=== PATIENT | female | born 1945 | race Caucasian/White ===

== ENCOUNTER 2017-05-20 17:37 | Emergency (ER) | payer SELFPAY ==
[~2017-05-20] VITALS: Ht 157.5 cm; Wt 54.9 kg
[2017-05-20 17:44] VITALS: Ht 157.5 cm; Wt 54.9 kg
[2017-05-20 19:11] LABS: CARBON DIOXIDE 28.5 mmol/L (21-32); CREATININE SERUM 1.2 mg/dL (0.6-1.0); POTASSIUM SERUM 3.6 mmol/L (3.5-5.1)
[2017-05-20 19:15] LABS: BASOPHIL % 0.4 % (0-2); PLATELET COUNT 302 x10^3mcL (130-400); RED CELL DISTRIBUTION WIDTH 13.4 % (11.5-14.5)
[2017-05-20 19:28] LABS: ALBUMIN 3.7 g/dL (3.4-5.0); BILIRUBIN TOTAL 0.45 mg/dL (0.20-1.00); TOTAL PROTEIN, SERUM 7.5 g/dL (6.4-8.2)
[2017-05-20 22:41] LABS: MAGNESIUM 2.1 mg/dL (1.8-2.4)
[2017-05-20 22:42] LABS: CHOLESTEROL/HDL RATIO 2.8
[2017-05-20 22:43] LABS: T3 TOTAL 1.11 ng/mL
[2017-05-20 22:51] LABS: FREE T4 1.14 ng/dL (0.76-1.46); FREE THYROXINE INDEX 3.8 ug/dL (1.4-4.5); T4(THYROXINE) 10.8 ug/dL (4.7-13.3)
[2017-05-20] MEDS ORDERED: METOPROLOL TART50 MG PO (22:52)
[2017-05-21 04:56] LABS: BASOPHIL % 0.2 % (0-2); PLATELET COUNT 298 x10^3mcL (130-400); RED CELL DISTRIBUTION WIDTH 13.6 % (11.5-14.5)
[2017-05-21 04:59] LABS: CALCIUM 8.4 mg/dL (8.5-10.1); CARBON DIOXIDE 26.7 mmol/L (21-32); POTASSIUM SERUM 3.5 mmol/L (3.5-5.1)
[2017-05-21 11:54] VITALS: BP 124/76
== END 2017-05-21 11:57 | disposition home or self-care (01) ==
LOC: ED 17:37
PROVIDERS: Emergency Medicine; Family Medicine
DX: I24.9 Acute ischemic heart disease, unspecified (principal); E78.00 Pure hypercholesterolemia, unspecified; I10 Essential (primary) hypertension
CPT/HCPCS: 83880; 84439; J7030; Q0092